=== PATIENT | male | born 1975 | race Caucasian/White ===

== ENCOUNTER 2019-12-22 05:23 | Emergency (ER) | payer SELFPAY ==
[2019-12-22 05:27] VITALS: BP 173/123; PULSE 114; RESP 20; TEMP 37.1; O2SAT 97; BMI 45.0
--- NOTE | 2019-12-22 05:43 | PC.NURSE ---
PATIENT STATES THAT HIS LEGS STARTED SWELLING IN 2017 AND THEN TWO MONTHS AGO HIS RIGHT LEG SPLIT OPEN IN A CUT. PATIENT STATES THAT HIS LEG HAS NOT HEALED. PATIENT STATES THAT HE CAME IN TONIGHT BECAUSE HE IS OUT OF PAIN MEDICATION AND BANDAGES FOR HIS LEG. PATIENT STATES HE DOESN'T KNOW WHY HIS LEG IS NOT HEALING.
[2019-12-22 05:48] VITALS: BP 177/105; PULSE 107; RESP 18; O2SAT 99
--- NOTE | 2019-12-22 05:54 | W.ED.WOUNDLC ---
HPI - Wound/Laceration General: Chief Complaint: Wound/Laceration Stated Complaint: l leg wound Time Seen by Provider: 12/22/19 05:40 Source: patient Mode of arrival: ambulatory Limitations: no limitations History of Present Illness: HPI narrative: Patient is a 44-year-old male who has a history of lymphedema the states he has had increased swelling along with wounds opened up on his left leg with increased pain and redness. Patient states this is been going on for 3 to 4 days. He denies any shortness of breath. He has had multiple tests and has had no DVTs or anything in his legs. He denies any vomiting or diarrhea. He denies any fevers. Patient is hypertensive. He states he is had high blood pressure in the past but does not take any meds. Associated symptoms: Denies chills, fever(s), nausea or vomiting Review of Systems Const: Denies: fever, chills, body aches or change in appetite Eyes: Denies: blurry vision or eye discomfort ENMT: Denies: throat pain or dental pain Card: Denies: chest pain Resp: Denies: shortness of breath GI: Denies: abdominal pain, nausea, vomiting or diarrhea : Denies: painful urination Musc: Denies: neck pain or back pain Skin/Breast: Reports: redness; Denies: rash Neuro: Denies: headache Psych: Denies: depression Joseph/Lymph: Denies: easy bruising All/Imm: Denies: hives PFSH ED PFSH: Social History Smoking and tobacco status: current every day smoker Physical Exam Const: COMMON NORMALS: no apparent distress, oriented x3 and healthy appearing HENMT: COMMON NORMALS: normocephalic and head/scalp atraumatic HEAD & SCALP: normocephalic and atraumatic Eye: COMMON NORMALS: PERRL and EOMs intact bilaterally PUPIL: Yes PERRL Neck/C-Spine: COMMON NORMALS: full ROM and supple Chest: COMMONS NORMALS: inspection of chest normal and palpation of chest normal Resp: COMMON NORMALS: normal respiratory effort, no retractions, no use of accessory muscles and clear to auscultation bilaterally AUSCULTATION: clear to auscultation bilaterally Cardio: COMMON NORMALS: regular rate, regular rhythm and no murmurs RATE: regular rate RHYTHM: regular rhythm GI: COMMON NORMALS: normal to inspection, nondistended, normoactive bowel sounds, soft to palpation, non-tender and no masses PALPATION: Yes soft Extremity: COMMON NORMALS: normal to inspection and full ROM NARRATIVE EXTREMITY EXAM: bilateral swelling to legs c/w lymphadema. erythema with drainage to left leg. Neuro: COMMON NORMALS: oriented x3, moves all extremities and no focal motor deficits Psych: COMMON NORMALS: mental status grossly normal, thought process normal and cooperative THOUGHT PROCESS: normal thought process Skin: COMMON NORMALS: no rashes or lesions noted and no wounds GENERAL SKIN EXAM: no rashes or lesions noted Course Vital Signs: Vital signs: Vital Signs Temperature 98.8 F 12/22/19 05:27 Pulse Rate 107 H 12/22/19 05:48 Respiratory Rate 18 12/22/19 05:48 Blood Pressure 177/105 12/22/19 05:48 Pulse Oximetry 99 12/22/19 05:48 MDM - Wound/Laceration MDM Narrative: Medical decision making narrative: Patient presents here with chronic lymphedema with cellulitis to his left leg. We will start him on antibiotics. We will also prescribe him pain meds. He also is hypertensive. We will start him on amlodipine. We will get him wound care follow-up and he is to follow-up with his primary care doctor as well. He is to return if worsening. Discharge Plan Discharge Patient Disposition: Home, Self-Care Clinical Impression: Lymphedema, Hypertension Cellulitis Qualifiers: Site of cellulitis: extremity Site of cellulitis of extremity: lower extremity Laterality: left Qualified Code(s): L03.116 - Cellulitis of left lower limb Condition: Stable Prescriptions: [place] 5-325 mg tablet 1 tab PO Q6H PRN (Reason: pain) Qty: 14 RF: 0 Bactrim DS 800-160 mg tablet 1 tab PO BID 10 Days Qty: 20 RF: 0 Keflex 500 mg capsule 500 mg PO Q6H 7 Days Qty: 28 RF: 0 amlodipine 5 mg tablet 5 mg PO DAILY Qty: 30 RF: 0 Discharge Orders: Discharge Order (Routine); Ordered 12/22/19 Ordered By: Tj Turner Referrals: Franco Carpenter MD [Family Provider] - [facility], [Staff Physician] - Discharge Diet: Advance as tolerated Discharge Activity: Resume usual activity Patient Instructions: Cellulitis (ED) Coding Level of Care Code ED Knitting Inspector for [place]
[2019-12-22] MEDS: sulfamethoxazole-trimeth DS 160-800 mg Tablet 1 TAB PO (05:55)
[2019-12-22] MEDS: cephALEXin 500 mg Capsule PO (05:55)
[2019-12-22] MEDS: HYDROcodone-acetaminophen 7.5-325 mg Tablet 1 TAB PO (05:55)
[2019-12-22 06:31] VITALS: RESP 16; O2SAT 100
[2019-12-22] MEDS: morphine 4 mg/mL SDV 1 mL IM (06:31)
[2019-12-22 06:35] VITALS: BP 177/119; RESP 17; O2SAT 98
[2019-12-22 07:07] VITALS: BP 160/122; PULSE 102; RESP 17; O2SAT 100
--- NOTE | 2019-12-26 11:20 | DCPLANNER ---
enrollment management manager had message to schedule a follow up appointment for patient with Wound Care. enrollment management manager called Wound Care, spoke with Charis. A followup appointment is scheduled for Friday, December 27, 2019 at 1:[address] Joshua. Case -manager scheduling called - [phone] and phone number was not taking phone calls at this time. enrollment management manager called [phone], [employer], Reclamador machine stated that the office was closed for restructuring at this time, block and case maker did leave a voicemail for patient to return watch case polisher phone call. enrollment management manager called Wound Care, spoke with Charis, appointment was cancelled due to not being able to reach patient with appointment information. A letter was sent to patient to call block and case maker regarding scheduling an appointment.
== END 2019-12-22 07:08 | disposition home or self-care (01) ==
PROVIDERS: Emergency Provider Emergency Medicine; Family Provider Family Medicine
DX: I89.0 Lymphedema, not elsewhere classified (principal); L03.116 Cellulitis of left lower limb; I10 Essential (primary) hypertension; F17.200 Nicotine dependence, unspecified, uncomplicated
CPT/HCPCS: 12345; 96372; 99281; 99283; J2270

== ENCOUNTER 2020-08-02 00:21 | Emergency (ER) | payer SELFPAY ==
[2020-08-02] VITALS (8 sets, daily range): BP systolic 153–206; BP diastolic 106–131; PULSE 87–94; RESP 16–19; TEMP 35.8; O2SAT 93–100; BMI 48.7
--- NOTE | 2020-08-02 01:12 | W.ED.EXTPRO ---
HPI - Extremity Problem General: Chief complaint: Extremity Injury, Lower Stated complaint: noticable bulge on torso Time Seen by Provider: 08/02/20 00:43 History of Present Illness: HPI Narrative: Patient complains about lymphedema and cellulitis in his left lower extremities had for 2 years and just got worse the last couple weeks. Has been on different antibiotics for it and nothing is completely cleared up. Also says his ventral hernia is hurting somewhat. That is been hurting for a while his leg is what he is very concerned about and he said is just unbearable and would like to receive some IV antibiotics. Patient declining lab test due to cost patient does not have insurance he said just run very basic form please MD Complaint: extremity swelling Onset (ago): year(s) Pain Consistency: constant Location: left and lower extremity Severity scale (1-10): 6 Quality: burning and aching Radiation: none Relieving factors: nothing Exacerbating factors: weight bearing Associated symptoms: Reports no associated symptoms; Deny chest pain, fever(s) or rash Review of Systems Const: Denies: fever(s), chills or body aches Eyes: Denies: change in vision or blurry vision ENMT: Denies: throat pain or nasal congestion Card: Denies: chest pain or dyspnea on exertion Resp: Denies: dyspnea, productive cough or non-productive cough GI: Reports: abdominal pain (Has had a ventral hernia for years); Denies: nausea or vomiting : Denies: difficulty urinating Musc: Denies: extremity pain Skin/Breast: Reports: skin tenderness, skin swelling and sores (Drain yellow drainage); Denies: rash Neuro: Denies: headache(s) Psych: Denies: anxiety or depression Joseph/Lymph: Denies: easy bruising [facility] ED PFSH: Medical History (Updated 08/02/20 @ 02:11 by PHANI Wasserman) BPH NOS w/o ur obs/LUTS COPD (chronic obstructive pulmonary disease) Erectile dysfunction Essential hypertension Hyperlipidemia Social History Smoking and tobacco status: current every day smoker Physical Exam Const: COMMON NORMALS: no acute distress, average body habitus and patient oriented x3 HENMT: COMMON NORMALS: normocephalic HEAD & SCALP: normal to inspection and normocephalic FACE & SINUS: normal facial exam Eye: COMMON NORMALS: conjunctivae normal GENERAL EYE: appearance normal, both eyes and all related structures CONJUNCTIVA: Yes conjunctivae normal Neck/C-Spine: COMMON NORMALS: no JVD Chest: COMMONS NORMALS: normal inspection of the chest Resp: COMMON NORMALS: normal respiratory effort and clear to auscultation bilaterally AUSCULTATION: clear to auscultation bilaterally Cardio: COMMON NORMALS: no JVD, regular rate and regular rhythm RATE: regular rate RHYTHM: regular rhythm GI: AUSCULTATION: Yes normoactive bowel sounds OTHER: Has a large ventral hernia that is tender but does not appear strangulated red or swollen. Extremity: COMMON NORMALS: full ROM LEFT LOWER EXTREMITY: Yes lower leg (Has redness from mid aguiar down on left leg has drainage from the lateral aspect a lot to swelling to both lower extremities wound on left leg in the lateral aspect mid aguiar appears to be about 1/4 inch wide by 2 inches long with thick yellow exudate filling the wound bed) Neuro: COMMON NORMALS: patient oriented x3 Course Vital Signs: Vital signs: Vital Signs Temperature 96.5 F L 08/02/20 00:29 Pulse Rate 92 08/02/20 01:46 Respiratory Rate 18 08/02/20 01:46 Blood Pressure 174/106 08/02/20 01:46 Pulse Oximetry 99 08/02/20 01:46 MDM - Extremity (Nontraumatic) Lab Data: Labs: Lab Results 08/02/20 Range/Units 01:48 WBC 13.4 H (4.0-10.0) 10^3/ uL RBC 4.16 (4.1-5.3) 10^6/u L Hgb 10.8 L (11.7-16.6) g/dL Hct 35.8 L (42.0-52.0) % MCV 86.1 (80-94) fL MCH 26.0 L (28.0-34.0) pg MCHC 30.2 (30.0-36.0) g/dL RDW 16.6 H (12.1-15.1) % Plt Count 429 H (130-400) 10^3/c mm MPV 10.2 (7.4-10.4) fL Neut % (Auto) 54.0 % Lymph % (Auto) 30.0 % [place] % (Auto) 9.5 % Eos % (Auto) 4.8 % Baso % (Auto) 1.3 % Neut # (Auto) 7.24 (1.8-7.7) 10^3/u L Lymph # (Auto) 4.0 (0.8-4.8) 10^3/u L [place] # (Auto) 1.3 H (0.2-0.9) 10^3/u L Eos # (Auto) 0.7 (0.0-0.8) 10^3/u L Baso # (Auto) 0.2 H (0.0-0.1) 10^3/u L Nucleated RBC % (a uto) 0 % Nucleated RBCs # 0.0 /100WBC Discharge Plan Discharge Patient Disposition: Home Clinical Impression: Lymphedema Abdominal hernia Qualifiers: Hernia type: other abdominal hernia Obstruction and gangrene presence: without obstruction or gangrene Qualified Code(s): K45.8 - Other specified abdominal hernia without obstruction or gangrene Cellulitis Qualifiers: Site of cellulitis: extremity Site of cellulitis of extremity: lower extremity Laterality: left Qualified Code(s): L03.116 - Cellulitis of left lower limb Hypertension Qualifiers: Hypertension type: essential hypertension Qualified Code(s): I10 - Essential (primary) hypertension Condition: Stable Prescriptions: New Bactrim DS 800-160 mg tablet 1 tab PO BID 21 Days Qty: 42 RF: 0 hydrocodone-acetaminophen 5-325 mg tablet 1 tab PO TID PRN (Reason: pain) Qty: 14 RF: 0 No Action [place] 5-325 mg tablet 1 tab PO Q6H PRN (Reason: pain) Qty: 14 RF: 0 amlodipine 5 mg tablet 5 mg PO DAILY Qty: 30 RF: 0 Discharge Diet: Usual diet Discharge Activity: Increase activity as tolerated Patient Instructions: Abdominal Hernia, Cellulitis (ED), Hypertension (ED), Lymphedema (ED) Activity Restrictions/Additional Instructions: Follow-up with medical provider as directed. Take medications as prescribed. Return to the ER or your medical provider if condition worsens. Please read and understand discharge instructions. If any questions ask please. Talk to your doctor about getting scheduled for lymphedema therapy at [facility] physical therapy department. See about getting referral to wound clinic for the wound on the left leg. See about getting a referral to general surgeon for abdominal hernia repair. Make sure you check your blood pressure twice a day same time every day and report those readings back for 2 weeks of readings to your family medical provider Coding Level of Care Code ED Business Information Consultant for [employer] Fwd Exam Comprehensive
[2020-08-02] MEDS: morphine 4 mg/mL SDV 1 mL IVP ×2 (01:40→03:34)
[2020-08-02] MEDS: ondansetron 2 mg/ML SDV 2 mL 4 MG IVP (01:41)
[2020-08-02] MEDS: levofloxacin-dextrose 5 % 500 MG/100 ML PREMIX 100 MG IV (01:41)
[2020-08-02 02:01] LABS: Basophils # 0.2 10^3/uL (0.0-0.1); Basophils % 1.3 %; Eosinophils # 0.7 10^3/uL (0.0-0.8); Eosinophils % 4.8 %; Hematocrit 35.8 % (42.0-52.0); Hemoglobin 10.8 g/dL (11.7-16.6); Mean Corpuscular HGB Conc 30.2 g/dL (30.0-36.0); Mean Corpuscular Volume 86.1 fL (80-94); Mean Platelet Volume 10.2 fL (7.4-10.4); Monocytes # 1.3 10^3/uL (0.2-0.9); Monocytes % 9.5 %; Neutrophils # 7.24 10^3/uL (1.8-7.7); Nucleated Red Blood Cells % 0 %; Platelet Count 429 10^3/cmm (130-400); Red Blood Count 4.16 10^6/uL (4.1-5.3); Red Cell Distribution Width 16.6 % (12.1-15.1); White Blood Count 13.4 10^3/uL (4.0-10.0)
[2020-08-02 02:20] LABS: Lactate (Lactic Acid level) 1.7 mmol/L (0.5-2.2)
== END 2020-08-02 04:46 | disposition home or self-care (01) ==
PROVIDERS: Emergency Provider Nurse Practitioner Family
DX: I89.0 Lymphedema, not elsewhere classified (principal); K45.8 Other specified abdominal hernia without obstruction or gangrene; L03.116 Cellulitis of left lower limb; I10 Essential (primary) hypertension; J44.9 Chronic obstructive pulmonary disease, unspecified; E78.5 Hyperlipidemia, unspecified; F17.210 Nicotine dependence, cigarettes, uncomplicated
CPT/HCPCS: 12345; 83605; 85025; 87070; 87077; 87186; 96365; 96367; 96375; 96376; 99283; 99284; J1956; J2270; J2405; J3370; J7050